=== PATIENT | male | born 1985 | race Caucasian/White ===

== ENCOUNTER 2018-03-17 23:43 | Emergency (ER) | payer SELFPAY ==
--- NOTE | 2018-03-17 23:52 | EDM.PDOC ---
ED HPI GENERAL MEDICAL PROBLEM - General Stated Complaint: TOOTH PAIN Time Seen by Provider: 03/17/18 23:52 - History of Present Illness INITIAL COMMENTS - FREE TEXT/NARRATIVE: HISTORY AND PHYSICAL: History of present illness: Patient 32-year-old male presents with concern of dental pain has been over last 3 days with some swelling to his right jaw. Review of systems: As per history of present illness and below otherwise all systems reviewed and negative. Past medical history: As per history of present illness and as reviewed below otherwise noncontributory. Surgical history: As per history of present illness and as reviewed below otherwise noncontributory. Social history: No reported history of drug or alcohol abuse. Family history: As per history of present illness and as reviewed below otherwise noncontributory. Physical exam: HEENT: Atraumatic, normocephalic, pupils reactive, negative for conjunctival pallor or scleral icterus, mucous membranes moist, throat clear, neck supple, nontender, trachea midline. Generally poor dentition noted with multiple dental caries and secondary dental fracture swelling to his right jaw noted Lungs: Clear to auscultation, breath sounds equal bilaterally, chest nontender. Heart: S1S2, regular, negative for clicks, rubs, or JVD. Abdomen: Soft, nondistended, nontender. Negative for masses or hepatosplenomegaly. Negative for costovertebral tenderness. Pelvis: Stable nontender. Genitourinary: Deferred. Rectal: Deferred. Extremities: Atraumatic, negative for cords or calf pain. Neurovascular unremarkable. Neuro: Awake, alert, oriented. Cranial nerves II through XII unremarkable. Cerebellum unremarkable. Motor and sensory unremarkable throughout. Exam nonfocal. Diagnostics: None Therapeutics: None Impression: #1 dentalgia #2 dental caries #3 dental abscess Definitive disposition and diagnosis as appropriate pending reevaluation and review of above. ED ROS GENERAL - Review of Systems Review Of Systems: ROS reveals no pertinent complaints other than HPI. ED EXAM, GENERAL - Physical Exam Exam: See Below (See dictation) Departure - Departure Time of Disposition: 23:51 Disposition: Home, Self-Care 01 Condition: Good Clinical Impression: Dentalgia, Dental caries, Dental abscess - Discharge Information Referrals: PCP,None [Primary Care Provider] - Additional Instructions: The following information is given to patients seen in the emergency department who are being discharged to home. This information is to outline your options for follow-up care. We provide all patients seen in our emergency department with a follow-up referral. The need for follow-up, as well as the timing and circumstances, are variable depending upon the specifics of your emergency department visit. If you don't have a primary care physician on staff, we will provide you with a referral. We always advise you to contact your personal physician following an emergency department visit to inform them of the circumstance of the visit and for follow-up with them and/or the need for any referrals to a consulting specialist. The emergency department will also refer you to a specialist when appropriate. This referral assures that you have the opportunity for followup care with a specialist. All of these measure are taken in an effort to provide you with optimal care, which includes your followup. Under all circumstances we always encourage you to contact your private physician who remains a resource for coordinating your care. When calling for followup care, please make the office aware that this follow-up is from your recent emergency room visit. If for any reason you are refused follow-up, please contact the [facility] emergency department at and asked to speak to the emergency department charge nurse. Pen-Vee K as prescribed Motrin Tylenol as directed follow-up general dentist return as needed as discussed
== END 2018-03-18 00:13 | disposition home or self-care (01) ==
LOC: MW.ED 23:43
DX: K04.7 Periapical abscess without sinus (principal); K02.9 Dental caries, unspecified
CPT/HCPCS: 99281; 99282

== ENCOUNTER 2019-03-24 07:52 | Emergency (ER) | payer SELFPAY ==
[2019-03-24] MEDS ORDERED: Ketorolac 60 MG/2 ML SDV IM ONE (08:04)
--- NOTE | 2019-03-24 08:07 | EDM.PDOC ---
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 Past medical history: As per history of present illness and as reviewed below otherwise noncontributory. Surgical history: As per history of present illness and as reviewed below otherwise noncontributory. Social history: No reported history of drug or alcohol abuse. Family history: As per history of present illness and as reviewed below otherwise noncontributory. Physical exam: HEENT: Atraumatic, normocephalic, pupils reactive, negative for conjunctival pallor or scleral icterus, mucous membranes moist, throat clear, neck supple, nontender, trachea midline. Lungs: Clear to auscultation, breath sounds equal bilaterally, chest nontender. Heart: S1S2, regular, negative for clicks, rubs, or JVD. Abdomen: Soft, nondistended, nontender. Negative for masses or hepatosplenomegaly. Negative for costovertebral tenderness. Pelvis: Stable nontender. Genitourinary: Deferred. Rectal: Deferred. Extremities: Atraumatic, negative for cords or calf pain. Neurovascular unremarkable. Neuro: Awake, alert, oriented. Cranial nerves II through XII unremarkable. Cerebellum unremarkable. Motor and sensory unremarkable throughout. Exam nonfocal. Diagnostics: [Lumbar spine 2-3 views ] Therapeutics: [Toradol 60 IM Tramadol 50 mg #30 no refill ] Impression: [Low back pain History of vertebral fractures secondary to trauma ] Definitive disposition and diagnosis as appropriate pending reevaluation and review of above. Lower Back Pain Score (Numeric/FACES): 9 - Related Data Allergies Allergy/AdvReac Type Severity Reaction Status Date / Time No Known Allergies Allergy Verified 03/24/19 08:01 Home Meds: Home Meds . [No Known Home Meds] 03/18/18 [History] Past Medical History HEENT History: Reports: None Cardiovascular History: Reports: None Respiratory History: Reports: None Gastrointestinal History: Reports: None Genitourinary History: Reports: None Musculoskeletal History: Reports: None Neurological History: Reports: None Psychiatric History: Reports: None Endocrine/Metabolic History: Reports: None Hematologic History: Reports: None Immunologic History: Reports: None Oncologic (Cancer) History: Reports: None Dermatologic History: Reports: None - Infectious Disease History Infectious Disease History: Reports: None - Past Surgical History Head Surgeries/Procedures: Reports: None Social & Family History - Family History Family Medical History: Noncontributory - Caffeine Use Caffeine Use: Reports: Energy Drinks ED ROS GENERAL - Review of Systems Review Of Systems: See Below ED EXAM, GENERAL - Physical Exam Exam: See Below Course - Vital Signs Last Recorded V/S: Last Vital Signs Temp 97.2 F 03/24/19 07:58 Pulse 77 03/24/19 07:58 Resp 18 03/24/19 07:58 BP 107/72 03/24/19 07:58 Pulse Ox 100 03/24/19 07:58 - Orders/Labs/Meds Meds: Medications Discontinued Medications Generic Name Dose Route Start Last Admin Trade Name Freq PRN Reason Stop Dose Admin Ketorolac Tromethamine 60 mg 03/24/19 08:04 Toradol IM 03/24/19 08:05 ONETIME ONE Departure - Departure Time of Disposition: 08:46 Disposition: Home, Self-Care 01 Condition: Good Clinical Impression: Low back pain - Discharge Information Instructions: Chronic Back Pain, Ufup-to-Qdtn Referrals: PCP,None [Primary Care Provider] - Forms: ED Department Discharge Additional Instructions: The following information is given to patients seen in the emergency department who are being discharged to home. This information is to outline your options for follow-up care. We provide all patients seen in our emergency department with a follow-up referral. The need for follow-up, as well as the timing and circumstances, are variable depending upon the specifics of your emergency department visit. If you don't have a primary care physician on staff, we will provide you with a referral. We always advise you to contact your personal physician following an emergency department visit to inform them of the circumstance of the visit and for follow-up with them and/or the need for any referrals to a consulting specialist. The emergency department will also refer you to a specialist when appropriate. This referral assures that you have the opportunity for follow-up care with a specialist. All of these measure are taken in an effort to provide you with optimal care, which includes your follow-up. Under all circumstances we always encourage you to contact your private physician who remains a resource for coordinating your care. When calling for follow-up care, please make the office aware that this follow-up is from your recent emergency room visit. If for any reason you are refused follow-up, please contact the [facility] emergency department at and asked to speak to the emergency department charge nurse.
--- NOTE | 2019-03-24 08:46 | CR ---
INDICATION: Pain. TECHNIQUE: Three upright images of the lumbar spine. COMPARISON: None. FINDINGS: No fracture, disc space narrowing, spondylolisthesis or curvature abnormality. Sacroiliac joints unremarkable. IMPRESSION: Negative lumbar spine. Dictated by Antonio Lr MD @ Mar 24 2019 8:44AM Signed by Dr. Antonio Lr @ Mar 24 2019 8:45AM
== END 2019-03-24 08:50 | disposition home or self-care (01) ==
LOC: MW.ED 07:52
DX: M54.5 Low back pain (principal)
CPT/HCPCS: 72100; 96372; 99283; J1885

== ENCOUNTER 2020-02-01 19:26 | Emergency (ER) | payer BC ==
--- NOTE | 2020-02-01 19:57 | EDM.PDOC ---
ED HPI GENERAL MEDICAL PROBLEM - General Chief Complaint: ENT Problem Stated Complaint: SICK Time Seen by Provider: 02/01/20 19:57 Source of Information: Reports: Patient History Limitations: Reports: No Limitations - History of Present Illness INITIAL COMMENTS - FREE TEXT/NARRATIVE: HISTORY AND PHYSICAL: History of present illness: [] Review of systems: As per history of present illness and below otherwise all systems reviewed and negative. Past medical history: As per history of present illness and as reviewed below otherwise noncontributory. Surgical history: As per history of present illness and as reviewed below otherwise noncontributory. Social history: No reported history of drug or alcohol abuse. Family history: As per history of present illness and as reviewed below otherwise noncontributory. Physical exam: General: Patient sitting comfortably in no acute distress and nontoxic appearing HEENT: Atraumatic, normocephalic, pupils reactive, negative for conjunctival pallor or scleral icterus, mucous membranes moist, throat clear, neck supple, nontender, trachea midline. No meningeal signs. Lungs: Clear to auscultation, breath sounds equal bilaterally, chest nontender. Heart: S1S2, regular, negative for clicks, rubs, or overt murmur. Abdomen: Soft, nondistended, nontender. Negative for masses or hepatosplenomegaly. Negative for costovertebral tenderness. No rigidity, rebound , guarding. Pelvis: Stable nontender. Genitourinary: Deferred. Rectal: Deferred. Extremities: Atraumatic, negative for cords or calf pain. Neurovascular unremarkable. Neuro: Awake, alert, oriented. Cranial nerves II through XII unremarkable. Cerebellum unremarkable. Motor and sensory unremarkable throughout. Exam nonfocal. Notes: Diagnostics: [] Therapeutics: [] Prescriptions: Impression: [] Plan: [] Definitive disposition and diagnosis as appropriate pending reevaluation and review of above. - Related Data Allergies Allergy/AdvReac Type Severity Reaction Status Date / Time No Known Allergies Allergy Verified 03/24/19 08:01 Home Meds: Home Meds . [No Known Home Meds] 03/18/18 [History] Past Medical History HEENT History: Reports: None Cardiovascular History: Reports: None Respiratory History: Reports: None Gastrointestinal History: Reports: None Genitourinary History: Reports: None Musculoskeletal History: Reports: None Neurological History: Reports: None Psychiatric History: Reports: None Endocrine/Metabolic History: Reports: None Hematologic History: Reports: None Immunologic History: Reports: None Oncologic (Cancer) History: Reports: None Dermatologic History: Reports: None - Infectious Disease History Infectious Disease History: Reports: None - Past Surgical History Head Surgeries/Procedures: Reports: None Social & Family History - Family History Family Medical History: Noncontributory - Caffeine Use Caffeine Use: Reports: Energy Drinks Departure - Discharge Information Referrals: PCP,None [Primary Care Provider] - Forms: ED Department Discharge
--- NOTE | 2020-02-01 20:40 | EDM.PDOC ---
ED HPI GENERAL MEDICAL PROBLEM - General Chief Complaint: General Stated Complaint: rectal pain Time Seen by Provider: 02/01/20 19:57 Source of Information: Reports: Patient - History of Present Illness INITIAL COMMENTS - FREE TEXT/NARRATIVE: The patient is a 34-year-old male who presents to the ER because he believes that he has a hernia on his right upper gluteal region. The patient states that he developed this hernia 15 years ago when he was 19 years old. He was told that it was a hernia and he had to just occasionally "rub it out". He states that it has been hurting more over the last few days so he came to the ER to get checked out. rectal Pain Score (Numeric/FACES): 6 - Related Data Allergies Allergy/AdvReac Type Severity Reaction Status Date / Time No Known Allergies Allergy Verified 02/01/20 19:57 Home Meds: Home Meds . [No Known Home Meds] 03/18/18 [History] Past Medical History HEENT History: Reports: None Cardiovascular History: Reports: None Respiratory History: Reports: None Gastrointestinal History: Reports: None Genitourinary History: Reports: None Musculoskeletal History: Reports: None Neurological History: Reports: None Psychiatric History: Reports: None Endocrine/Metabolic History: Reports: None Hematologic History: Reports: None Immunologic History: Reports: None Oncologic (Cancer) History: Reports: None Dermatologic History: Reports: None - Infectious Disease History Infectious Disease History: Reports: None - Past Surgical History Head Surgeries/Procedures: Reports: None Social & Family History - Family History Family Medical History: Noncontributory - Caffeine Use Caffeine Use: Reports: Energy Drinks ED ROS GENERAL - Review of Systems Review Of Systems: See Below (Positive for right gluteal lump negative for rectal discharge, negative for rectal pain, negative for testicular pain, negative for abdominal pain, all other Positives and pertinent negatives as per HPI. All other pertinent systems were reviewed and are negative) ED EXAM, GENERAL - Physical Exam Exam: See Below Free Text/Narrative:: Constitutional: No acute distress, Non-toxic appearance. HEENT: Normocephalic, Atraumatic, EOMI Neck: Normal range of motion, No stridor, trachea midline Respiratory: No respiratory distress, No tachypnea Cardiovascular: Deferred Gastrointestinal: Deferred Genital / Urinary: Deferred Musculoskeletal: All four extremities present and atraumatic, on the right medial upper gluteal region, there is a cystic-like structure in the subdermal area, there is nothing perirectal, no hemorrhoids, no surrounding erythema or induration, no abscess Back: FROM Integument: Warm, Dry, Color is ethnicity appropriate, No rash. Neuro: Alert, Awake, No focal deficits noted Psych: Affect, Judgement, mood normal Course - Vital Signs Text/Narrative:: I talked to the patient in detail about what hernias actually are and this is not a hernia. I suspect that the patient has had a cyst in this area and it is been there for approximately 15 years. There is nothing emergent that needs to be done but he will be given a general surgeon for follow-up for consideration of cyst removal and/or drainage. Last Recorded V/S: Last Vital Signs Temp 36.3 C 02/01/20 19:50 Pulse 67 02/01/20 19:50 Resp 16 02/01/20 19:50 BP 118/69 02/01/20 19:50 Pulse Ox 96 02/01/20 19:50 Departure - Departure Time of Disposition: 20:39 Disposition: Home, Self-Care 01 Condition: Good Clinical Impression: Cyst - Discharge Information *PRESCRIPTION DRUG MONITORING PROGRAM REVIEWED*: Not Applicable *COPY OF PRESCRIPTION DRUG MONITORING REPORT IN PATIENT YOUSIF: Not Applicable Instructions: Medical Screening Exam Referrals: PCP,None [Primary Care Provider] - Fior Castro MD [Physician] - Forms: ED Department Discharge Sepsis Event Note - Evaluation Sepsis Screening Result: No Definite Risk - Focused Exam Vital Signs: Vital Signs Temp Pulse Resp BP Pulse Ox 02/01/20 19:50 36.3 C 67 16 118/69 96 Date Exam was Performed: 02/01/20 Time Exam was Performed: 21:43
== END 2020-02-01 20:55 | disposition home or self-care (01) ==
LOC: MW.ED 19:26
DX: L72.9 Follicular cyst of the skin and subcutaneous tissue, unspecified (principal)
CPT/HCPCS: 99282; 99283

== ENCOUNTER 2020-02-19 06:33 | Day surgery (SDC) | payer BC ==
[~2020-02-19 06:33] MED LIST: Lactated Ringers 1,000 ML IV SCH; Sodium Chloride 0.9% 10 ML SDV IV PRN; Sodium Chloride 0.9% 10 ML Syringe FLUSH PRN; Sodium Chloride 0.9% 2.5 ML Syringe FLUSH PRN; cefOXitin 1 GM in Premix Bag 1 BAG IV ONE
[2020-02-19] MEDS ORDERED: Midazolam 1 MG/ML 2 ML SDV ONE (07:17)
[2020-02-19] MEDS ORDERED: Propofol 200 MG/20 ML SDV ONE (07:17)
--- NOTE | 2020-02-19 07:21 | PCM.PREANE ---
Preanesthetic Assessment - Anesthesia/Transfusion/Family Hx Anesthesia History: No Prior Anesthesia Family History of Anesthesia Reaction: No Transfusion History: No Prior Transfusion(s) - Review of Systems General: No Symptoms Pulmonary: No Symptoms Cardiovascular: No Symptoms Gastrointestinal: No Symptoms Neurological: No Symptoms Other: Reports: None - Physical Assessment NPO Status Date: 02/19/20 NPO Status Time: 06:00 Vital Signs: Last Vital Signs Temp 98.4 F 02/19/20 06:40 Pulse 56 L 02/19/20 06:40 Resp 16 02/19/20 06:40 BP 106/61 02/19/20 06:40 Pulse Ox 99 02/19/20 06:40 Height: 5 ft 9 in Weight: 60.328 kg ASA Class: 2 Mental Status: Alert & Oriented x3 Airway Class: Mallampati = 2 Dentition: Reports: Normal Dentition ROM/Head Extension: Full Lungs: Clear to Auscultation, Normal Respiratory Effort Cardiovascular: Regular Rate, Regular Rhythm - Allergies Allergies/Adverse Reactions: Allergies Allergy/AdvReac Type Severity Reaction Status Date / Time lactose Allergy Diarrhea Verified 02/13/20 11:31 - Blood Blood Available: No - Anesthesia Plan Pre-Op Medication Ordered: None - Acknowledgements Anesthesia Type Planned: Spinal Pt an Appropriate Candidate for the Planned Anesthesia: Yes Alternatives and Risks of Anesthesia Discussed w Pt/Guardian: Yes Pt/Guardian Understands and Agrees with Anesthesia Plan: Yes PreAnesthesia Questionnaire HEENT History: Reports: Other (See Below) Other HEENT History: wears glasses/contacts Cardiovascular History: Reports: None Respiratory History: Reports: None Other Respiratory History: awaiting sleep study for sleep apnea Gastrointestinal History: Reports: None Genitourinary History: Reports: None Musculoskeletal History: Reports: Fracture Other Musculoskeletal History: hx of fx hand and foot- no hardware Neurological History: Reports: None Psychiatric History: Reports: ADHD, Anxiety, Depression Endocrine/Metabolic History: Reports: None Hematologic History: Reports: None Immunologic History: Reports: None Oncologic (Cancer) History: Reports: None Dermatologic History: Reports: None - Infectious Disease History Infectious Disease History: Reports: None - Past Surgical History Head Surgeries/Procedures: Reports: None Other Musculoskeletal Surgeries/Procedures:: has hx of L1-4 fractures - SUBSTANCE USE Smoking Status *Q: Current Every Day Smoker Tobacco Use Within Last Twelve Months: Cigarettes Recreational Drug Use History: Yes Recreational Drug Type: Reports: Marijuana/Hashish - HOME MEDS Home Medications: Home Meds Marijuana 1 dose INH DAILY 02/13/20 [History] - CURRENT (IN HOUSE) MEDS Current Meds: Current Medications Lactated Ringer's (Ringers, Lactated) 1,000 mls @ 125 mls/hr IV ASDIRECTED PILY Last Admin: 02/19/20 06:57 Dose: 125 mls/hr Sodium Chloride (Saline Flush) 10 ml FLUSH ASDIRECTED PRN PRN Reason: Keep Vein Open Sodium Chloride (Saline Flush) 2.5 ml FLUSH ASDIRECTED PRN PRN Reason: Keep Vein Open Sodium Chloride (Normal Saline) 10 ml IV ASDIRECTED PRN PRN Reason: IV Use Discontinued Medications Cefoxitin Sodium 1 gm/ Premix 50 mls @ 100 mls/hr IV ONETIME ONE Stop: 02/14/20 09:06
[2020-02-19] MEDS ORDERED: cefOXitin 1 GM Vial ONE (08:05)
[2020-02-19] MEDS ORDERED: Bupivacaine 0.5% 30 ML SDV ONE (08:15)
--- NOTE | 2020-02-19 08:52 | PCM.OPNOTE ---
<Huma Rutherford - Last Filed: 02/19/20 08:52> - General Post-Op/Procedure Note Date of Surgery/Procedure: 02/19/20 Operative Procedure(s): Incision and drainage Pre Op Diagnosis: Perianal abcess Post-Op Diagnosis: Perianal abcess Anesthesia Technique: Spinal Primary Surgeon: Fior Castro Fluid Replacement, Intraop: 800 EBL in mLs: 2 Complications: None Condition: Good Free Text/Narrative:: No complications appreciated <Fior Castro - Last Filed: 02/19/20 09:19> - General Post-Op/Procedure Note Operative Procedure(s): Incision and drainage perianal abscess, exam under anesthesia Findings: 3 x 3 x 0.5 right perianal abscess Anesthesia Technique: MAC, Spinal Free Text/Narrative:: Intake & Output 02/18/20 02/19/20 02/19/20 22:59 06:59 14:59 Intake Total 1750 Balance 1750
--- NOTE | 2020-02-19 11:54 | PCM48HPAN ---
Post Anesthesia Note - EVALUATION WITHIN 48HRS OF ANESTHETIC Vital Signs in Normal Range: Yes Patient Participated in Evaluation: Yes Respiratory Function Stable: Yes Airway Patent: Yes Cardiovascular Function Stable: Yes Hydration Status Stable: Yes Pain Control Satisfactory: Yes Nausea and Vomiting Control Satisfactory: Yes Mental Status Recovered: Yes Vital Signs: Last Vital Signs Temp 97.3 F 02/19/20 09:15 Pulse 61 02/19/20 09:50 Resp 16 02/19/20 09:50 BP 119/55 L 02/19/20 09:50 Pulse Ox 99 02/19/20 09:50
--- NOTE | 2020-02-19 11:54 | PCM.POSTAN ---
POST ANESTHESIA ASSESSMENT - MENTAL STATUS Mental Status: Alert, Oriented - VITAL SIGNS Vital Signs: Last Vital Signs Temp 97.3 F 02/19/20 09:15 Pulse 61 02/19/20 09:50 Resp 16 02/19/20 09:50 BP 119/55 L 02/19/20 09:50 Pulse Ox 99 02/19/20 09:50 - RESPIRATORY Respiratory Status: Respiratory Rate WNL, Airway Patent, O2 Saturation Stable - CARDIOVASCULAR CV Status: Pulse Rate WNL, Blood Pressure Stable - GASTROINTESTINAL GI Status: No Symptoms - POST OP HYDRATION Hydration Status: Adequate & Stable
--- NOTE | 2020-02-20 17:23 | OR ---
SURGEON: FIOR CASTRO MD DATE OF PROCEDURE: 02/19/2020 PREOPERATIVE DIAGNOSIS: Perianal abscess. POSTOPERATIVE DIAGNOSIS: Perianal abscess. PROCEDURES PERFORMED: 1. Exam under anesthesia. 2. Incision and drainage of perianal abscess. PRIMARY SURGEON: Fior Castro MD TANYARD WORKER: Signal Technician: Dr. Huma Rutherford, residential care officer. ANESTHESIA: Spinal, MAC. FLUIDS: 800 mL of crystalloid. ESTIMATED BLOOD LOSS: 2 mL. FINDINGS: 3 x 3 x 0.5 cm right posterior perianal abscess. COMPLICATIONS: None. INDICATIONS: The patient is a 34-year-old male who presents with some tenderness and a fullness on his right buttock near the anus. On physical exam in the clinic, the patient was noted to have a fluctuant area consistent with a perianal abscess. The patient and I discussed the possibility of a perianal abscess versus a perianal fistula. I explained the need for an exam under anesthesia and possible incision and drainage of this abscess as well as a possible fistulotomy and/or seton placement. We discussed the risks and benefits. The patient verbalized understanding and wishes to proceed. PROCEDURE IN DETAIL: The patient was brought into the OR and placed on the OR table in supine position. A time-out was completed verifying the patient's name, age, date of , allergies, and procedure to be performed. A saddle block was performed, and the patient was laid on the table in the left lateral decubitus position. Monitored anesthesia care was induced. The buttocks and perianal area were prepped and draped in usual standard fashion. On inspection, I identified an area of fluctuance in the right posterior area consistent with what was found in clinic. A digital rectal exam was performed. This exam was within normal limits. A bivalve proctoscope was placed into the anal canal, and I inspected the DICTATION ENDS HERE. ORTIZ / HESHAM /[id number]
--- NOTE | 2020-02-20 17:37 | OR ---
SURGEON: FIOR CASTRO MD DATE OF PROCEDURE: 02/19/2020 PREOPERATIVE DIAGNOSIS: Perianal abscess. POSTOPERATIVE DIAGNOSIS: Perianal abscess. PROCEDURES PERFORMED: Exam under anesthesia, incision and drainage of perianal abscess. PRIMARY SURGEON: Fior Castro MD CERTIFIED MASTER LOCKSMITH: Tunnel Mucker: Huma Rutherford, resident associate. ANESTHESIA: Spinal, MAC. FLUIDS: 800 mL of crystalloid. ESTIMATED BLOOD LOSS: 2 mL. FINDINGS: 3 x 3 x 0.5 cm perianal abscess. No evidence of perianal fistula. COMPLICATIONS: None. INDICATIONS: The patient is a 34-year-old male who presents with a perianal abscess. The decision was made to proceed to the operating room for an exam under anesthesia with incision and drainage of this abscess and exploration for a possible perianal fistula with the potential for a seton placement. I explained the procedure, expected perioperative course, and risks. The patient verbalized understanding and wishes to proceed. PROCEDURE IN DETAIL: The patient was brought into the OR and placed on the OR table in supine position. A time-out was completed verifying the patient's name, age, date of , allergies, and procedure to be performed. Spinal anesthesia was performed, and the patient was placed in the left lateral decubitus position. Monitored anesthesia care was induced. All bony prominences were appropriately padded. The patient was secured to the table. The anus and buttocks were prepped and draped in usual standard fashion. I performed an examination of the operative field. The patient had a small fluctuant area just right and posterior to the anoderm. A digital rectal exam was performed. This exam was within normal limits. A bivalve proctoscope was placed in the anal canal. I closely inspected the anal canal and all the structures appeared normal. There was no evidence of a fistula. An 18-gauge needle was then used to gracia into the area of fluctuance. A small amount of purulence was noted. I then removed the needle and used an 11 blade to open up the area of maximum fluctuance. A small amount of purulence was noted. This was opened approximately 1 cm. A fistula probe was then placed into the abscess cavity, and I explored it. It did not appear to track to the midline. There appeared to be no fistula. With the bivalve proctoscope in the anal canal, I injected hydrogen peroxide into the abscess cavity. There was no hydrogen peroxide which was noted within the anal canal. Once I was assured that there was no perianal fistula, I then used gentle blunt dissection with a fistula probe to break down any loculations within the abscess cavity. It was irrigated with normal saline and then packed with quarter-inch Nu Gauze. The area around it was anesthetized with 0.5% Marcaine plain at the end of the case. 4 x 4 fluffs were placed over the area and secured in place with mesh underwear. The patient tolerated the procedure well and was taken to the PACU in stable condition. All counts were complete and correct at the end of the case. ORTIZ / HESHAM /[id number]
== END 2020-02-19 11:15 | disposition home or self-care (01) ==
LOC: MW.SDS 06:33
PROVIDERS: ATTEND Surgery
DX: K61.0 Anal abscess (principal); F17.210 Nicotine dependence, cigarettes, uncomplicated; F90.9 Attention-deficit hyperactivity disorder, unspecified type; F41.9 Anxiety disorder, unspecified; F32.9 Major depressive disorder, single episode, unspecified; Z91.011 Allergy to milk products
CPT/HCPCS: 46050; J0694; J2250; J2704; J3490; J7120; 00902